=== PATIENT | male | born 1995 | race Caucasian/White ===

== ENCOUNTER 2018-01-26 15:14 | Emergency (ER) | payer OTHER ==
[2018-01-26] MEDS: diphenhydrAMINE INJ 50MG/ML VIAL (J1200) IV (18:59)
[2018-01-26] MEDS: NS 1,000 ML IV (19:00)
[2018-01-26] MEDS: METOCLOPRAMIDE INJ 10MG/2ML VIAL (J2765) IV (19:00)
[2018-01-26] MEDS: KETOROLAC 30 MG/ML VIAL (J1885) IV (19:00)
[2018-01-26 19:25] LABS: BASO % 0.5 % (0.0-1.0); EOS # 0.3 10^3/uL (0.0-0.50); EOS % 3.8 % (0.0-3.0); HEMOGLOBIN 15.2 g/dl (13.5-17.5); IMMATURE GRANULOCYTE % 0.5 % (0-3.0); LYMPH # 3.4 10^3/uL (1.5-6.5); MEAN CORPUSCULAR HEMOGLOBIN 28.4 pg (27.0-33.0); MONO # 0.9 10^3/uL (0.0-0.8); MONO % 10.3 % (0.0-5.0); NEUTROPHILS % 45.9 % (36.0-66.0); PLATELET COUNT, AUTOMATED 238 10^3/uL (150-450); RED BLOOD COUNT 5.35 10^6/uL (4.30-6.10); RED CELL DISTRIBUTION WIDTH 14.6 % (11.5-14.5); WHITE BLOOD COUNT 8.6 10^3/uL (4.0-10.0)
[2018-01-26 19:43] LABS: MAGNESIUM LEVEL 2.2 MG/DL (1.8-2.4)
[2018-01-26 19:46] LABS: ANION GAP 5 MEQ/L (8-16); BLOOD UREA NITROGEN 29 MG/DL (7-18); CALCIUM LEVEL 8.8 MG/DL (8.5-10.1); CARBON DIOXIDE LEVEL 29 MEQ/L (21-32); CHLORIDE LEVEL 107 MEQ/L (98-107); CREATININE FOR GFR 1.04 MG/DL (0.70-1.30); GLUCOSE, FASTING 87 MG/DL (70-100); POTASSIUM SERUM 4.5 MEQ/L (3.5-5.1); SODIUM LEVEL 141 MEQ/L (136-145)
[2018-01-26 19:54] LABS: GOLD SPEC TUBE RECIEVED
[2018-01-26] MEDS: methylPREDNISolone INJ 125 MG/2 ML VIAL (J2930) IV (20:45)
== END 2018-01-26 22:03 | disposition home or self-care (01) ==
LOC: M ED 15:14
DX: G43.909 Migraine, unspecified, not intractable, without status migrainosus (principal)
CPT/HCPCS: J1200

== ENCOUNTER 2018-03-14 00:11 | Emergency (ER) | payer OTHER ==
[2018-03-14 00:52] LABS: HEMATOCRIT 44.1 % (42.0-52.0); HEMOGLOBIN 14.8 g/dl (13.5-17.5); MEAN CORPUSCULAR HEMOGLOBIN 28.6 pg (27.0-33.0); MEAN CORPUSCULAR HGB CONC 33.6 g/dl (32.0-36.5); MEAN CORPUSCULAR VOLUME 85.1 fl (80.0-96.0); PLATELET COUNT, AUTOMATED 214 10^3/uL (150-450); RED BLOOD COUNT 5.18 10^6/uL (4.30-6.10); RED CELL DISTRIBUTION WIDTH 13.7 % (11.5-14.5); WHITE BLOOD COUNT 10.6 10^3/uL (4.0-10.0)
[2018-03-14 01:35] LABS: AMPHETAMINES LEVEL URINE NEGATIVE (NEGATIVE); BARBITURATES URINE NEGATIVE (NEGATIVE); BENZODIAZEPINES URINE NEGATIVE (NEGATIVE); CANNABINOIDS URINE NEGATIVE (NEGATIVE); COCAINE METABOLITE URINE NEGATIVE (NEGATIVE); METHADONE URINE NEGATIVE (NEGATIVE); OPIATES URINE NEGATIVE (NEGATIVE); PHENCYCLIDINE URINE NEGATIVE (NEGATIVE)
[2018-03-14 01:36] LABS: ACETAMINOPHEN LEVEL < 2.0 UG/ML (10.0-30.0); ALBUMIN 3.8 GM/DL (3.2-5.2); ALBUMIN/GLOBULIN RATIO 1.23 (1.00-1.93); ALKALINE PHOSPHATASE 51 U/L (45-117); ALT/SGPT 28 U/L (12-78); ANION GAP 12 MEQ/L (8-16); AST/SGOT 23 U/L (7-37); BILIRUBIN,DIRECT < 0.1 MG/DL (0.0-0.2); BILIRUBIN,TOTAL 0.2 MG/DL (0.2-1.0); BLOOD UREA NITROGEN 17 MG/DL (7-18); CALCIUM LEVEL 8.1 MG/DL (8.5-10.1); CARBON DIOXIDE LEVEL 25 MEQ/L (21-32); CHLORIDE LEVEL 107 MEQ/L (98-107); CREATININE FOR GFR 1.17 MG/DL (0.70-1.30); ETHYL ALCOHOL (ETHANOL) 0.153 % (0.000-0.010); GLOMERULAR FILTRATION RATE > 60.0 (>60); GLUCOSE, FASTING 92 MG/DL (70-100); POTASSIUM SERUM 3.9 MEQ/L (3.5-5.1); SALICYLATE LEVEL < 1.7 MG/DL (5.0-30.0); SODIUM LEVEL 144 MEQ/L (136-145); TOTAL PROTEIN 6.9 GM/DL (6.4-8.2)
== END 2018-03-14 03:05 | disposition home or self-care (01) ==
LOC: M ED 00:11
DX: S00.83XA Contusion of other part of head, initial encounter (principal); F10.129 Alcohol abuse with intoxication, unspecified; X58.XXXA Exposure to other specified factors, initial encounter; Y92.9 Unspecified place or not applicable; Y93.89 Activity, other specified; Y99.9 Unspecified external cause status; J01.90 Acute sinusitis, unspecified
CPT/HCPCS: 70486

== ENCOUNTER 2018-08-25 10:59 | Emergency (ER) | payer OTHER ==
[~2018-08-25] VITALS: Ht 175.3 cm; Wt 116.0 kg
[~2018-08-25 10:59] MED LIST: ALEV220T26 PO; NAPR-837 PO; REGL10TA6 PO
[2018-08-25 11:00] VITALS: BP 126/71
[2018-08-25] MEDS ORDERED: AUGM875T28 PO (13:18)
== END 2018-08-25 13:42 | disposition home or self-care (01) ==
LOC: M ED 10:59
DX: S61.451A Open bite of right hand, initial encounter (principal); W55.01XA Bitten by cat, initial encounter; Y92.009 Unspecified place in unspecified non-institutional (private) residence as the place of occurrence of the external cause; Y93.K9 Activity, other involving animal care

== ENCOUNTER 2019-05-13 19:50 | Inpatient (IN) | payer OTHER ==
[~2019-05-13] VITALS: Ht 177.8 cm; Wt 105.4 kg
[~2019-05-13 19:50] MED LIST changes: +AUGM875T28 PO
[2019-05-13] MEDS ORDERED: CLONI1TA PO (20:05)
[2019-05-13] MEDS ORDERED: LEXA1TAB PO (20:05)
[2019-05-13 20:43] LABS: HEMATOCRIT 44.5 % (42.0-52.0); HEMOGLOBIN 14.2 g/dl (13.5-17.5); MEAN CORPUSCULAR HEMOGLOBIN 26.5 pg (27.0-33.0); MEAN CORPUSCULAR HGB CONC 31.9 g/dl (32.0-36.5); PLATELET COUNT, AUTOMATED 356 10^3/uL (150-450); RED BLOOD COUNT 5.36 10^6/uL (4.30-6.10); WHITE BLOOD COUNT 10.2 10^3/uL (4.0-10.0)
[2019-05-13 21:06] LABS: AMPHETAMINES LEVEL URINE NEGATIVE (NEGATIVE); BARBITURATES URINE NEGATIVE (NEGATIVE); BENZODIAZEPINES URINE NEGATIVE (NEGATIVE); CANNABINOIDS URINE NEGATIVE (NEGATIVE); COCAINE METABOLITE URINE NEGATIVE (NEGATIVE); METHADONE URINE NEGATIVE (NEGATIVE); OPIATES URINE NEGATIVE (NEGATIVE); PHENCYCLIDINE URINE NEGATIVE (NEGATIVE)
[2019-05-13 21:16] LABS: ACETAMINOPHEN LEVEL < 2.0 UG/ML (10.0-30.0); ALBUMIN 3.7 GM/DL (3.2-5.2); ALT/SGPT 175 U/L (12-78); BILIRUBIN,DIRECT 0.1 MG/DL (0.0-0.2); BILIRUBIN,TOTAL 0.4 MG/DL (0.2-1.0); BLOOD UREA NITROGEN 19 MG/DL (7-18); CALCIUM LEVEL 8.4 MG/DL (8.5-10.1); CARBON DIOXIDE LEVEL 32 MEQ/L (21-32); CHLORIDE LEVEL 107 MEQ/L (98-107); CREATININE FOR GFR 1.41 MG/DL (0.70-1.30); ETHYL ALCOHOL (ETHANOL) < 0.003 % (0.000-0.010); GLOMERULAR FILTRATION RATE > 60.0 (>60); GLUCOSE, FASTING 87 MG/DL (70-100); POTASSIUM SERUM 4.3 MEQ/L (3.5-5.1); SALICYLATE LEVEL < 1.7 MG/DL (5.0-30.0); SODIUM LEVEL 142 MEQ/L (136-145); TOTAL PROTEIN 7.2 GM/DL (6.4-8.2)
--- NOTE | 2019-05-14 05:59 | ECGEPIP ---
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
[2019-05-14] MEDS ORDERED: MOM 30ML SUSPENSION UDC PO PRN (13:30)
[2019-05-14] MEDS ORDERED: ACETAMINOPHEN TAB 650MG DOSE (2X325MG) PO PRN (13:30)
[2019-05-14] MEDS ORDERED: MAALOX 30 ML SUSP *UDC PO PRN (13:30)
[2019-05-14] MEDS: NICOTINE 21MG/24HR 1 EA TRANSDERMAL TD SCH (13:58)
[2019-05-14 15:55] VITALS: BP 160/90
[2019-05-14] MEDS: cloNIDine 0.1 MG TAB PO SCH (20:26)
[2019-05-14] MEDS: hydrOXYzine 50 MG TAB PO PRN (20:26)
[2019-05-14] MEDS ORDERED: ESCITALOPRAM OXALATE 10 MG TAB (LEXAPRO) PO SCH (21:00)
[2019-05-14] MEDS: traZODone 50 MG TAB PO PRN (22:11)
[2019-05-15 06:20] VITALS: BP 132/59
[2019-05-15] MEDS: NICOTINE 21MG/24HR 1 EA TRANSDERMAL TD SCH (08:48)
--- NOTE | 2019-05-15 11:55 | MHHPEPDOC ---
General Date Of Admission: May 14, 2019 Legal Status: 9.39 Chief Complaint "I told a friend I wasn't going to be here much longer." History of Present Illness HISTORY OF THE PRESENT ILLNESS: Patient is a 24 -year-old , AD, male, with a history of depression and no inpatient admission who was brought to the ED after he told a friend that he may not be around much longer and his friend told his Michael who took pt to [facility] to be seen and then pt was brought to ED even though pt told his Michael that his therapist said he was ok to return to work. Pt states in the ED that he old his friend he had been suicidal in the past and was afraid he'd become suicidal again. He denies SI/HI in the ED though to [facility] staff but endorsed SI to Dr. Wilhelm. Pt endorsed 3 prior suicide attempts in the past, one prior to joining the [employer], one 1yr ago, and 1 2 months ago but never told anyone about them. States in Ed that when he was on leave in 03/25 he attempted to hang him self for shower head while he was in the shower but came in so he stopped. States in the ED that his main stressor was him cheating on his and telling her about it 05/09/19, endorsing guilt feels abo ut it. 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 Pt's Michael reported to the ED that pt had be zhou often and they believed he had a drinking problem. Later after pt admitted to unit called by staff who advised me that pt's Michael had search his home and found anabolic steroids which is a likely cause of anger/agitation, depression, SI, anxiety, sex addiction (roid rage) Psychiatric Review of Systems Depression (2 or more weeks): depressed mood, feelings of excess/guilt (guilt), difficulty concentrating, suicidal thoughts Martina (4 or more days of): denies Psychosis: denies PTSD: denies Anxiety: situational anxiety, stressor related anxiety Anxiety/ 6 months or more of: restlessness, keyed up, difficulty concentrating, irritability, sleep disturbance Past Psychiatric History Previous Psychiatric Diagnosis: depression, sex addition Previous Psychiatric Admissions: denies Suicide Attempts: 3 last 2 months ago by attempting to hanging himself from shower head in shower but then his walk in so he stopped; never told any one Psychiatric Follow-up: [facility] Psychiatric medications: lexapro 10mg qhs, clonidine 0.1 mg qhs Past Medical History Medical Problems varicose veins Head Injury: No Seizures: No Hospitalizations: No Surgeries: No Family Medical/Psychiatric HX Medical Problems denies Addiction: No Suicide Attemps/Completions: No Addiction History nicotine, alcohol (6 pack beer 2x/month), other (anabolic steriods - states last used 1 month ago, sexual addiction) Social History Childhood: 2 parent home with siblings, good childhood Abuse/Trauma:denies Current Living Situation: lives with on FD Education: high school grad Employment: [employer], currently being med boarded for varicose veins Social Support: Legal: denies Marital: , no kids Mental Status Examination General Appearance: well groomed, appears stated age, hospital scubs/clothing, other (facial acne) Build: overweight (muscular) Demeanor: average Eye Contact: average Activity: average Behavior: cooperative Speech: clear, spontaneous, reg/rate,rhythm,volume Mood: depressed, anxious Mood "better" Affect: constricted, congruent, anxious Thought Process: logical/linear, depressed, intact Thought Content (Delusions): none reported, denies SI, HI, AVH Thought Content (Other): guilty (regarding cheating on ), appropriate Thought Content (Aggressive): none reported Perception (Hallucinations): none reported Perception (Other): none reported Cognition (Impairment of): none reported Cognition(Intelligence Est.): average Oriented: Awake, Alert, Oriented times three Insight: fair Judgment: Fair Psychosis: Denies Diagnoses Depression Unspecified R/O adjustment d/o with depression and anxiety Anabolic Steroid use d/o Sexual Addiction A-FIB/CHADSVASC A-FIB History Current/History of A-Fib/PAF?: No Assessment Pt seen and states he's here for suicidal thoughts. States his has suicidal thoughts about weekly for the past 2 yrs and has almost acted on them in the past but didn't due to thoughts about family members and hope that things will get better. States that his suicidal thoughts this times made him actually want to get help. States he feels better today and denies SI now that he's getting help. Admits to stressors in the such as being med boarded for varicose veins and regarding his as he's cheated on her a lot in the past which "takes a tole on me." Michael called yesterday to notified unit yesterday that in searching pt's home found anabolic steroids that he has used in about a month and just had extras in him home. States he was using them to maintain muscle mass but stopped once he looked into their side effects like depression and anxiety which motivated him to stop. Believes his depression is due to his current stressors. States he takes lexapro qhs but believes it needs to be increased as it's not working as well as previously. Denies SI/HI, hallucinations, delusions. Feels safe here. Initial Treatment Plan 1. Patient was admitted on a 9.39 status. 2. Complete history was obtained. 3. With patients permission, family will be contacted and database will be expanded. 4. Patients medication regimen will be reviewed and changed accordingly. 5. Patient will be provided with protected environment. 6. Patient will be treated with individual, group, and milieu therapies. 7. Patient will receive supportive psych-education. 8. Discharge planning will commence immediately. 9. Outpatient follow-up treatment will be strongly recommended. 10. The initial treatment plan will focus initially on: * Depression. * Risk for suicide. 11. increase lexapo to 20mg qhs, vistaril 50mg q4hr prn anxiety ESTIMATED LENGTH OF STAY: 5-7 DAYS. TIME SPENT COUNSELING AND COORDINATING INITIAL CARE: 60 minutes. Vital Signs Vital Signs Date Time Temp Pulse Resp B/P (MAP) Pulse Ox O2 Delivery O2 Flow Rate FiO2 05/15/19 06:20 99.0 67 18 132/59 (83) 05/14/19 15:55 Room Air 05/14/19 12:30 96 Medications Scheduled Clonidine Hcl (Clonidine HCl) 0.1 Mg Tablet, 0.1 MG PO QHS, (Reported) Escitalopram Oxalate (Lexapro) 10 Mg Tablet, 10 MG PO QHS, (Reported) Allergies Coded Allergies: No Known Allergies (Unverified , 05/13/19) CAROL VILLA DO May 15, 2019 11:55
--- NOTE | 2019-05-15 12:22 | HPEPDOC ---
[facility] Medical History & Physical Date of Admission May 15, 2019 Date of Service: May 15, 2019 History and Physical CHIEF COMPLAINT: Admitted to inpatient mental health unit for suicidal ideation HISTORY OF PRESENT ILLNESS: 24-year-old male with past medical history of hypertension and depression is admitted to inpatient mental health unit for suicidal ideation. Patient has had worsening depression for the past 2 years, has attempted suicide in the past, currently had plans, but did not act on them. Patient does not have any medical complaints at this time, takes clonidine for hypertension. He denies any shortness of breath, chest pain, nausea, vomiting or diarrhea. 10 point review of system is negative except for above PAST MEDICAL HISTORY: 1. Hypertension. 2. Depression. PAST SURGICAL HISTORY: 1. Breast reduction. SOCIAL HISTORY: Never smoker. Social alcohol use. Denies drug use FAMILY HISTORY: Mother had thyroid cancer ALLERGIES: Please see below. HOME MEDICATIONS: Please see below. PHYSICAL EXAMINATION: VITAL SIGNS: Please see below. GENERAL: No distress HEENT: Normocephalic, atraumatic, moist mucous membranes NECK: Supple CARDIOVASCULAR EXAMINATION: S1, S2, no murmurs RESPIRATORY EXAMINATION: Clear to auscultation, no wheezing ABDOMINAL EXAMINATION: Soft, nontender, nondistended, positive bowel sounds EXTREMITIES: Range of motion intact SKIN: No rash NEUROLOGICAL EXAMINATION: Alert and oriented 3, no focal deficits PSYCHIATRIC EXAMINATION: Calm and cooperative LABORATORY DATA: See below. MICROBIOLOGY: Please see below. ASSESSMENT: 24-year-old male with past medical history of hypertension and depression, admitted to inpatient mental health unit for suicidal ideation. . PLAN: 1. Suicidal ideation. Management as per primary team 2. Hypertension. Continue clonidine 3. Elevated creatinine. Patient has significant muscle mass, likely to be his baseline, can monitor if concerned. Patient has no active medical issues at this time, please reconsult if needed. Vital Signs Vital Signs Date Time Temp Pulse Resp B/P (MAP) Pulse Ox O2 Delivery O2 Flow Rate FiO2 05/15/19 06:20 99.0 67 18 132/59 (83) 05/14/19 15:55 Room Air 05/14/19 12:30 96 Home Medications Scheduled Clonidine Hcl (Clonidine HCl) 0.1 Mg Tablet, 0.1 MG PO QHS Escitalopram Oxalate (Lexapro) 10 Mg Tablet, 10 MG PO QHS Allergies Coded Allergies: No Known Allergies (Unverified , 05/13/19) A-FIB/CHADSVASC A-FIB History Current/History of A-Fib/PAF?: No PARISH GOODRICH MD May 15, 2019 12:22
[2019-05-15 16:19] VITALS: BP 140/72
[2019-05-15] MEDS: cloNIDine 0.1 MG TAB PO SCH (20:31)
[2019-05-15] MEDS: traZODone 50 MG TAB PO PRN (20:31)
[2019-05-15] MEDS: ESCITALOPRAM OXALATE 10 MG TAB (LEXAPRO) PO SCH (20:31)
[2019-05-15] MEDS: hydrOXYzine 50 MG TAB PO PRN (21:25)
[2019-05-16 06:34] VITALS: BP 111/53
--- NOTE | 2019-05-16 09:36 | MHIPNPDOC ---
[facility] Progress Note Progress Note DATE OF SERVICE: 05/16/19 HISTORY: Patient is a 24 -year-old , AD, male, with a history of depression and no inpatient admission who was brought to the ED after he told a friend that he may not be around much longer and his friend told his Michael who took pt to [facility] to be seen and then pt was brought to ED even though pt told his Michael that his therapist said he was ok to return to work. Pt states in the ED that he old his friend he had been suicidal in the past and was afraid he'd become suicidal again. He denies SI/HI in the ED though to [facility] staff but end orsed SI to Dr. Wilhelm. Pt endorsed 3 prior suicide attempts in the past, one prior to joining the [employer], one 1yr ago, and 1 2 months ago but never told anyone about them. States in Ed that when he was on leave in 03/25 he attempted to hang him self for shower head while he was in the shower but came in so he stopped. States in the ED that his main stressor was him cheating on his and telling her about it 05/09/19, endorsing guilt feels about it. 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 Pt's Michael reported to the ED that pt had be zhou often and they believed he had a drinking problem. Later after pt admitted to unit called by staff who advised me that pt's Michael had search his home and found anabolic steroids which is a likely cause of anger/agitation, depression, SI, anxiety, sex addiction (roid rage) Pt seen and states he's here for suicidal thoughts. States his has suicidal thoughts about weekly for the past 2 yrs and has almost acted on them in the past but didn't due to thoughts about family members and hope that things will get better. States that his suicidal thoughts this times made him actually want to get help. States he feels better today and denies SI now that he's getting help. Admits to stressors in the such as being med boarded for varicose veins and regarding his as he's cheated on her a lot in the past which "takes a tole on me." Michael called yesterday to notified unit yesterday that in searching pt's home found anabolic steroids that he has used in about a month and just had extras in him home. States he was using them to maintain muscle mass but stopped once he looked into their side effects like depression and anxiety which motivated him to stop. Believes his depression is due to his current stressors. States he takes lexapro qhs but believes it needs to be increased as it's not working as well as previously. Denies SI/HI, hallucinations, delusions. Feels safe here. VITAL SIGNS: See below. NEW TEST RESULTS: See below. CURRENT MEDICATIONS: See below. MENTAL STATUS EXAMINATION: General Appearance: well groomed, appears stated age, hospital scubs/clothing, other (facial acne) Build: overweight (muscular) Demeanor: average Eye Contact: average Activity: average Behavior: cooperative Speech: clear, spontaneous, reg/rate,rhythm,volume Mood: depressed, anxious Mood "ok" Affect: constricted, congruent, anxious Thought Process: logical/linear, depressed, intact Thought Content (Delusions): none reported, denies SI, HI, AVH Thought Content (Other): guilty (regarding cheating on ), appropriate Thought Content (Aggressive): none reported Perception (Hallucinations): none reported Perception (Other): none reported Cognition (Impairment of): none reported Cognition(Intelligence Est.): average Oriented: Awake, Alert, Oriented times three Insight: fair Judgment: Fair Psychosis: Denies DIAGNOSES: Depression Unspecified R/O adjustment d/o with depression and anxiety Anabolic Steroid use d/o Sexual Addiction ASSESSMENT:Pt seen and states that his mood is "ok." States he slept well last night. Feels he is tolerating the increase in his lexapro well and is waiting for it to be more beneficial with daily use. His mood still appears depressed with constricted, anxious affect. Mostly worried about what his Michael will say or do after they found anabolic steriods in his home that pt said was "left over" and he stopped using a month ago. Continues to endorse guilt over cheating on his with multiple female sexual partners (5). He is attending groups and finding them helpful. He denies SI/HI, hallucinations, delusions. Pt feels safe here. MANAGEMENT PLAN: continue plan. lexapo to 20mg qhs vistaril 50mg q4hr prn anxiety TIME SPENT: 30 minutes. Vital Signs Vital Signs Date Time Temp Pulse Resp B/P (MAP) Pulse Ox O2 Delivery O2 Flow Rate FiO2 05/16/19 06:34 98.9 68 18 111/53 (72) Room Air 05/14/19 12:30 96 Current Medications Current Medications Medications (Trade) Dose Ordered Sig/Rehana Route PRN Reason Start Time Stop Time Status Last Admin Dose Admin Acetaminophen (Tylenol Tab) 650 mg Q6HP PRN PO HEADACHE or DISCOMFORT 05/14/19 13:30 Al Hydrox/Mg Hydrox/Simethicone (Mylanta) 30 ml Q4HP PRN PO HEARTBURN/INDIGESTION 05/14/19 13:30 Clonidine HCl (Catapres) 0.1 mg QHS PO 05/14/19 21:00 05/15/19 20:31 Escitalopram Oxalate (Lexapro) 10 mg QHS PO 05/14/19 21:00 05/15/19 11:56 DC 05/14/19 20:26 Escitalopram Oxalate (Lexapro) 20 mg QHS PO 05/15/19 21:00 05/15/19 20:31 Home Med (Med Rec Complete!) ASDIRECTED XX 05/13/19 22:30 05/13/19 22:32 DC Hydroxyzine HCl (Atarax) 50 mg Q4HP PRN PO Anxiety, Agitation 05/14/19 19:45 05/15/19 21:25 Magnesium Hydroxide (Milk Of Magnesia) 30 ml DAILYPRN PRN PO CONSTIPATION 05/14/19 13:30 Nicotine (Nicoderm Cq 21mg) 1 patch DAILY TD 05/14/19 09:00 05/15/19 17:39 DC Trazodone HCl (Desyrel) 50 mg QHSP PRN PO INSOMNIA 05/14/19 13:30 05/15/19 20:31 Allergies Coded Allergies: No Known Allergies (Unverified , 05/13/19) CAROL VILLA DO May 16, 2019 9:36 am
[2019-05-16 16:07] VITALS: BP 133/60
[2019-05-16] MEDS: cloNIDine 0.1 MG TAB PO SCH (20:23)
[2019-05-16] MEDS: ESCITALOPRAM OXALATE 10 MG TAB (LEXAPRO) PO SCH (20:23)
[2019-05-16] MEDS: traZODone 50 MG TAB PO PRN (21:52)
[2019-05-17 06:50] VITALS: BP 109/49
--- NOTE | 2019-05-17 10:23 | MHIPNPDOC ---
[facility] Progress Note Progress Note DATE OF SERVICE: 05/17/19 HISTORY: Patient is a 24 -year-old , AD, male, with a history of depression and no inpatient admission who was brought to the ED after he told a friend that he may not be around much longer and his friend told his Michael who took pt to [facility] to be seen and then pt was brought to ED even though pt told his Michael that his therapist said he was ok to return to work. Pt states in the ED that he old his friend he had been suicidal in the past and was afraid he'd become suicidal again. He denies SI/HI in the ED though to [facility] staff but en dorsed SI to Dr. Wilhelm. Pt endorsed 3 prior suicide attempts in the past, one prior to joining the [employer], one 1yr ago, and 1 2 months ago but never told anyone about them. States in Ed that when he was on leave in 03/25 he attempted to hang him self for shower head while he was in the shower but came in so he stopped. States in the ED that his main stressor was him cheating on his and telling her about it 05/09/19, endorsing guilt feels about it. 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 Pt's Michael reported to the ED that pt had be zhou often and they believed he had a drinking problem. Later after pt admitted to unit called by staff who advised me that pt's Michael had search his home and found anabolic steroids which is a likely cause of anger/agitation, depression, SI, anxiety, sex addiction (roid rage) Pt seen and states he's here for suicidal thoughts. States his has suicidal thoughts about weekly for the past 2 yrs and has almost acted on them in the past but didn't due to thoughts about family members and hope that things will get better. States that his suicidal thoughts this times made him actually want to get help. States he feels better today and denies SI now that he's getting help. Admits to stressors in the such as being med boarded for varicose veins and regarding his as he's cheated on her a lot in the past which "takes a tole on me." Michael called yesterday to notified unit yesterday that in searching pt's home found anabolic steroids that he has used in about a month and just had extras in him home. States he was using them to maintain muscle mass but stopped once he looked into their side effects like depression and anxiety which motivated him to stop. Believes his depression is due to his current stressors. States he takes lexapro qhs but believes it needs to be increased as it's not working as well as previously. Denies SI/HI, hallucinations, delusions. Feels safe here. VITAL SIGNS: See below. NEW TEST RESULTS: See below. CURRENT MEDICATIONS: See below. MENTAL STATUS EXAMINATION: General Appearance: well groomed, appears stated age, hospital scubs/clothing, other (facial acne) Build: overweight (muscular) Demeanor: average Eye Contact: average Activity: average Behavior: cooperative Speech: clear, spontaneous, reg/rate,rhythm,volume Mood: depressed, anxious Mood "ok" Affect: constricted, congruent, anxious Thought Process: logical/linear, depressed, intact Thought Content (Delusions): none reported, denies SI, HI, AVH Thought Content (Other): guilty (regarding cheating on ), appropriate Thought Content (Aggressive): none reported Perception (Hallucinations): none reported Perception (Other): none reported Cognition (Impairment of): none reported Cognition(Intelligence Est.): average Oriented: Awake, Alert, Oriented times three Insight: fair Judgment: Fair Psychosis: Denies DIAGNOSES: Depression Unspecified R/O adjustment d/o with depression and anxiety Anabolic Steroid use d/o Sexual Addiction ASSESSMENT:Pt seen and states that his mood is "better." States he slept well last night. Feels he is tolerating the increase in his lexapro well and believes it is now beneficial to his mood with daily use and group attendance combined. His mood still appears improved and less constricted and anxious affect. Continues to be mostly worried about what his Michael will say or do after they found anabolic steriods in his home that pt said was "left over" and he stopped using a month ago. Continues to endorse guilt over cheating on his with multiple female sexual partners (5) but is less preoccupied and depressed by it but is motivated to work on rebuilding his relation and trust with his . States she's forgiven him. States vistaril is sedating if he takes it for anxiety and advised will his dose so it's less sedating. States he doesn't think he'll need it though as his anxiety is improved with his treatment. He is attending groups and finding them helpful. He denies SI/HI, hallucinations, delusions. Pt feels safe here. MANAGEMENT PLAN: continue plan. D/c planning tomorrow lexapo to 20mg qhs vistaril 25mg q4hr prn anxiety TIME SPENT: 30 minutes. Vital Signs Vital Signs Date Time Temp Pulse Resp B/P (MAP) Pulse Ox O2 Delivery O2 Flow Rate FiO2 05/17/19 06:50 98.6 55 12 109/49 (69) Room Air 05/14/19 12:30 96 Current Medications Current Medications Medications (Trade) Dose Ordered Sig/Rehana Route PRN Reason Start Time Stop Time Status Last Admin Dose Admin Acetaminophen (Tylenol Tab) 650 mg Q6HP PRN PO HEADACHE or DISCOMFORT 05/14/19 13:30 Al Hydrox/Mg Hydrox/Simethicone (Mylanta) 30 ml Q4HP PRN PO HEARTBURN/INDIGESTION 05/14/19 13:30 Clonidine HCl (Catapres) 0.1 mg QHS PO 05/14/19 21:00 05/16/19 20:23 Escitalopram Oxalate (Lexapro) 10 mg QHS PO 05/14/19 21:00 05/15/19 11:56 DC 05/14/19 20:26 Escitalopram Oxalate (Lexapro) 20 mg QHS PO 05/15/19 21:00 05/16/19 20:23 Home Med (Med Rec Complete!) ASDIRECTED XX 05/13/19 22:30 05/13/19 22:32 DC Hydroxyzine HCl (Atarax) 50 mg Q4HP PRN PO Anxiety, Agitation 05/14/19 19:45 05/15/19 21:25 Magnesium Hydroxide (Milk Of Magnesia) 30 ml DAILYPRN PRN PO CONSTIPATION 05/14/19 13:30 Nicotine (Nicoderm Cq 21mg) 1 patch DAILY TD 05/14/19 09:00 05/15/19 17:39 DC Trazodone HCl (Desyrel) 50 mg QHSP PRN PO INSOMNIA 05/14/19 13:30 2/9/20 21:52 Allergies Coded Allergies: No Known Allergies (Unverified , 05/13/19) CAROL VILLA DO May 17, 2019 10:23 am
[2019-05-17] MEDS ORDERED: hydrOXYzine 25 MG TAB PO PRN (10:30)
[2019-05-17 16:21] VITALS: BP 139/63
[2019-05-17] MEDS: ESCITALOPRAM OXALATE 10 MG TAB (LEXAPRO) PO SCH (21:08)
[2019-05-17 21:09] VITALS: BP 149/88
[2019-05-17] MEDS: cloNIDine 0.1 MG TAB PO SCH (21:09)
[2019-05-18 06:30] VITALS: BP 116/59
[2019-05-18] MEDS ORDERED: TRAZ-252 PO (08:55)
[2019-05-18] MEDS ORDERED: ESCI10TA2 PO (08:55)
[2019-05-18] MEDS ORDERED: CLONI1TA PO (08:55)
[2019-05-18] MEDS ORDERED: HYDR-3363 PO (08:55)
--- NOTE | 2019-05-18 08:57 | MHDSPDOC ---
[facility] Discharge Summary Discharge Summary DATE OF ADMISSION: May 14, 2019 at 1:24 pm DATE OF DISCHARGE: May 18, 2019 DISCHARGE DIAGNOSES: Depression Unspecified R/O adjustment d/o with depression and anxiety Anabolic Steroid use d/o Sexual Addiction REASON FOR ADMISSION: Patient is a 24 -year-old , AD, male, with a history of depression and no inpatient admission who was brought to the ED after he told a friend that he may not be around much longer and his friend told his Michael who took pt to to be seen and then pt was brought to ED even though pt told his Michael that his therapist said he was ok to return to work. Pt states in the ED that he old his friend he had been suicidal in the past and was afraid he'd become suicidal again. He denies SI/HI in the ED though to [facility] staff but endorsed SI to Dr. Wilhelm. Pt endorsed 3 prior suicide attempts in the past, one prior to joining the [employer], one 1yr ago, and 1 2 months ago but never told anyone about them. States in Ed that when he was on leave in 03/25 he attempted to hang him self for shower head while he was in the shower but came in so he stopped. States in the ED that his main stressor was him cheating on his and telling her about it 05/09/19, endorsing guilt feels about it. 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 Pt's Michael reported to the ED that pt had be zhou often and they believed he had a drinking problem. Later after pt admitted to unit called by staff who advised me that pt's Michael had search his home and found anabolic steroids which is a likely cause of anger/agitation, depression, SI, anxiety, sex addiction (roid rage) Pt seen and states he's here for suicidal thoughts. States his has suicidal thoughts about weekly for the past 2 yrs and has almost acted on them in the past but didn't due to thoughts about family members and hope that things will get better. States that his suicidal thoughts this times made him actually want to get help. States he feels better today and denies SI now that he's getting help. Admits to stressors in the such as being med boarded for varicose veins and regarding his as he's cheated on her a lot in the past which "takes a tole on me." Michael called yesterday to notified unit yesterday that in searching pt's home found anabolic steroids that he has used in about a month and just had extras in him home. States he was using them to maintain muscle mass but stopped once he looked into their side effects like depression and anxiety which motivated him to stop. Believes his depression is due to his current stressors. States he takes lexapro qhs but believes it needs to be increased as it's not working as well as previously. Denies SI/HI, cesar llucinations, delusions. Feels safe here. CONSULTANTS INVOLVED: none TREATMENT AND PROGRESS ON THE UNIT : Pt was admitted to [facility], seen for psychiatric assessment and restarted on his outpatient medication lexapro increased to 20mg daily for mood and clonidine 0.1mg qhs for anxiety. He was provided vistaril 25mg tid prn anxiety and trazodone 100mg qhs prn insomnia. Pt found his medications beneficial and tolerated them well. He attended groups daily during his stay. His symptoms improved with treatment. On day of discharge he denied depression, anxiety, insomnia, SI/HI, hallucinations, delusions. He was discharged home after Michael meeting with follow-up at . He felt safe for discharge. DISCHARGE ASSESSMENT: Pt seen and states that his mood is "good" and that he's looking forward to going home to his with his Michael today. States he slept well last night. Feels he is tolerating the increase in his lexapro well and believes it's beneficial to his mood. States vistaril is beneficial for his anxiety. He is attending groups and finding them helpful. He denies depression, anxiety, insomnia, SI/HI, hallucinations, delusions. Pt feels safe to d/c home today with his Michael. MENTAL STATUS EXAMINATION ON DISCHARGE: General Appearance: well groomed, appears stated age, hospital scrubs/clothing, other (facial acne) Build: overweight (muscular) Demeanor: average Eye Contact: average Activity: average Behavior: cooperative Speech: clear, spontaneous, reg/rate,rhythm,volume Mood: euthymic, full range Mood "good" Affect: full, congruent Thought Process: logical/linear, intact Thought Content (Delusions): none reported, denies SI, HI, AVH Thought Content (Other): none reported, appropriate Thought Content (Aggressive): none reported Perception (Hallucinations): none reported Perception (Other): none reported Cognition (Impairment of): none reported Cognition(Intelligence Est.): average Oriented: Awake, Alert, Oriented times three Insight: good Judgment: good Psychosis: Denies MEDICATIONS ON DISCHARGE: lexapo to 20mg qhs vistaril 25mg tid prn anxiety clonidine 0.1mg qhs trazodone 50mg qhs prn insomnia PLAN/FOLLOWUP ARRANGEMENTS: D/c home with his Michael with follow-up at . The amount of time spent in the coordination of care for this patient was approximately 30 minutes. Vital Signs/I&Os Vital Signs Date Time Temp Pulse Resp B/P (MAP) Pulse Ox O2 Delivery O2 Flow Rate FiO2 05/18/19 06:30 97.6 52 14 116/59 (78) 05/17/19 16:21 Room Air 05/14/19 12:30 96 Medications Scheduled Clonidine Hcl (Clonidine HCl) 0.1 Mg Tablet, 0.1 MG PO QHS, (Reported) Escitalopram Oxalate (Lexapro) 10 Mg Tablet, 10 MG PO QHS, (Reported) Allergies Coded Allergies: No Known Allergies (Unverified , 05/13/19) CAROL VILLA DO May 18, 2019 8:56 am
== END 2019-05-18 11:43 | disposition home or self-care (01) | DRG 881 ==
LOC: M ED 19:50 → M ED INP 05-14 13:24 → M PSY 05-14 15:55
PROVIDERS: ADMIT Psychiatry & Neurology Psychiatry; ATTEND Psychiatry & Neurology Psychiatry
DX: F32.9 Major depressive disorder, single episode, unspecified (principal); Z91.5 Personal history of self-harm; F43.23 Adjustment disorder with mixed anxiety and depressed mood; F55.3 Abuse of steroids or hormones; F52.8 Other sexual dysfunction not due to a substance or known physiological condition; E03.9 Hypothyroidism, unspecified; I10 Essential (primary) hypertension; R79.0 Abnormal level of blood mineral; Z79.899 Other long term (current) drug therapy; F41.9 Anxiety disorder, unspecified

== ENCOUNTER → 2019-09-22 | Outpatient (CLI) | payer OTHER ==
[~2019-09-22] MED LIST changes: +CLONI1TA PO; +ESCI10TA2 PO; +HYDR-3363 PO; +LEXA1TAB PO; +LIDOCAINE 1% MDV 20ML VIAL As Ordered ONE; +TRAZ-252 PO
[2019-09-22 11:33] VITALS: BP 131/67
--- NOTE | 2019-09-22 17:20 | REP ---
ULTRASOUND-GUIDED LEFT AXILLARY LYMPH NODE BIOPSY The procedure was performed under the direct supervision of Dr. Costa. The patient has a history of a 1.2 x 0.9 x 0.7 cm lymph node in the left axilla seen on a previous ultrasound from [facility] performed on 08/18/2019. The risks and benefits of the procedure were explained to the patient and informed consent was obtained. The left axillary lymph node was localized using ultrasound guidance. The skin was prepped and draped in a sterile fashion. 1% lidocaine was used as a local anesthetic. Using ultrasound guidance a 14-gauge coaxial needle biopsy system was inserted and advanced into the lymph node. Six core biopsy samples were obtained and sent to lab. The patient did develop a hematoma postprocedure. Pressure was held at the site for approximately 5-10 minutes until hemostasis was achieved. The patient tolerated the procedure well. After the appropriate amount of monitored convalescence the patient was discharged from the department. Electronically Signed by JORDAN Huddleston 09/22/2019 04:19 P Electronically Signed by Abiodun Costa MD 09/22/2019 05:08 P
== END ==
LOC: M IRPRO 09:00
PROVIDERS: ATTEND General Practice
DX: R59.0 Localized enlarged lymph nodes (principal); L76.32 Postprocedural hematoma of skin and subcutaneous tissue following other procedure

== ENCOUNTER 2019-12-22 10:43 | Emergency (ER) | payer OTHER ==
[~2019-12-22] VITALS: Ht 177.8 cm; Wt 119.3 kg
[~2019-12-22 10:43] MED LIST changes: -LIDOCAINE 1% MDV 20ML VIAL As Ordered ONE
[2019-12-22] MEDS ORDERED: ABIL1TAB13 PO (10:49)
[2019-12-22 11:18] LABS: BASO % 0.6 % (0.0-1.0); EOS # 0.3 10^3/uL (0.0-0.5); HEMATOCRIT 40.2 % (42.0-52.0); HEMOGLOBIN 13.1 g/dl (13.5-17.5); LYMPH # 2.3 10^3/uL (1.5-5.0); LYMPH % 32.8 % (24.0-44.0); MEAN CORPUSCULAR HEMOGLOBIN 26.3 pg (27.0-33.0); MEAN CORPUSCULAR HGB CONC 32.6 g/dl (32.0-36.5); MEAN CORPUSCULAR VOLUME 80.7 fl (80.0-96.0); MONO # 0.6 10^3/uL (0.0-0.8); MONO % 8.1 % (0.0-5.0); NEUTROPHILS # 3.8 10^3/uL (1.5-8.5); NEUTROPHILS % 53.9 % (36.0-66.0); PLATELET COUNT, AUTOMATED 345 10^3/uL (150-450); RED BLOOD COUNT 4.98 10^6/uL (4.30-6.10); WHITE BLOOD COUNT 7.1 10^3/uL (4.0-10.0)
[2019-12-22 11:42] LABS: ALBUMIN 3.4 GM/DL (3.2-5.2); ALT/SGPT 107 U/L (12-78); BILIRUBIN,DIRECT 0.1 MG/DL (0.0-0.2); BILIRUBIN,TOTAL 0.3 MG/DL (0.2-1.0); BLOOD UREA NITROGEN 16 MG/DL (7-18); CALCIUM LEVEL 8.8 MG/DL (8.5-10.1); CARBON DIOXIDE LEVEL 29 MEQ/L (21-32); CHLORIDE LEVEL 107 MEQ/L (98-107); CREATININE FOR GFR 1.26 MG/DL (0.70-1.30); GLOMERULAR FILTRATION RATE > 60.0 (>60); GLUCOSE, FASTING 85 MG/DL (70-100); LIPASE 99 U/L (73-393); POTASSIUM SERUM 4.3 MEQ/L (3.5-5.1); SODIUM LEVEL 139 MEQ/L (136-145); TOTAL PROTEIN 7.4 GM/DL (6.4-8.2)
[2019-12-22] MEDS: GASTROGRAFIN SOLUTION 30ML PO SCH ×2 (12:25→12:57)
[2019-12-22] MEDS ORDERED: ISOVUE-370 76% 100ML VIAL As Ordered ONE (13:52)
--- NOTE | 2019-12-22 14:33 | REPVR ---
PROCEDURE INFORMATION: Exam: CT Abdomen And Pelvis With Contrast Exam date and time: 12/22/2019 2:00 PM Age: 24 years old Clinical indication: Abdominal pain; Generalized; Additional info: Hematemesis and black tarry stools TECHNIQUE: Imaging protocol: Computed tomography of the abdomen and pelvis with intravenous contrast. Radiation optimization: All CT scans at this facility use at least one of these dose optimization techniques: automated exposure control; mA and/or kV adjustment per patient size (includes targeted exams where dose is matched to clinical indication); or iterative reconstruction. Contrast material: ISOVUE 370; Contrast volume: 100 ml; Contrast route: INTRAVENOUS (IV); COMPARISON: No relevant prior studies available. FINDINGS: Mediastinal space: Small sliding hiatal hernia with thickening of the distal esophagus. Liver: Liver measures 19 cm in the midclavicular line. Gallbladder and bile ducts: Normal. No calcified stones. No ductal dilation. Pancreas: Normal. No ductal dilation. Spleen: Normal. No splenomegaly. Adrenals: Normal. No mass. Kidneys and ureters: Normal. No hydronephrosis. Stomach and bowel: Unremarkable. No obstruction. No mucosal thickening. Appendix: No evidence of appendicitis. Intraperitoneal space: Unremarkable. No free air. No significant fluid collection. Vasculature: Unremarkable. No abdominal aortic aneurysm. Lymph nodes: Unremarkable. No enlarged lymph nodes. Bladder: Unremarkable as visualized. Reproductive: Unremarkable as visualized. Bones/joints: Unremarkable. No acute fracture. Soft tissues: Unremarkable. IMPRESSION: Small sliding hiatal hernia with marked thickening noted of the distal esophagus suggesting esophagitis. Electronically signed by: Mari Nowak On 12/22/2019 14:32:58 PM
[2019-12-22] MEDS ORDERED: SUCR1SS PO (14:41)
[2019-12-22] MEDS ORDERED: PROT1TAB2 PO (14:41)
[2019-12-22 14:53] VITALS: BP 114/76
== END 2019-12-22 14:56 | disposition home or self-care (01) ==
LOC: M ED 10:43
DX: K62.5 Hemorrhage of anus and rectum (principal); K92.0 Hematemesis; K44.9 Diaphragmatic hernia without obstruction or gangrene; K20.9 Esophagitis, unspecified; R51 Headache; F33.9 Major depressive disorder, recurrent, unspecified; F41.9 Anxiety disorder, unspecified; F17.290 Nicotine dependence, other tobacco product, uncomplicated; Z79.899 Other long term (current) drug therapy
CPT/HCPCS: 36415; 74177; 80048; 80076; 83690; 85025; 86850; 86900; 86901; 99284; Q9963; Q9967

== ENCOUNTER 2020-01-27 16:48 | Emergency (ER) | payer OTHER ==
[~2020-01-27] VITALS: Ht 157.5 cm; Wt 119.1 kg
[~2020-01-27 16:48] MED LIST changes: +ABIL1TAB13 PO; +PROT1TAB2 PO; +SUCR1SS PO
[2020-01-27] MEDS ORDERED: HYDR-4570 (16:58)
[2020-01-27] MEDS ORDERED: DOXY100T (16:58)
[2020-01-27] MEDS ORDERED: GI COCKTAIL 50ML BTL(HYOSCYAMINE/MAALOX/LIDOCAINE VISCOUS)(1:3:1) PO ONE (17:45)
[2020-01-27 17:56] VITALS: BP 128/65
[2020-01-27] MEDS ORDERED: PROT1TAB2 PO (18:01)
[2020-01-27] MEDS ORDERED: SUCR1SS PO (18:01)
== END 2020-01-27 18:07 | disposition home or self-care (01) ==
LOC: M ED 16:48
DX: K21.00 Gastro-esophageal reflux disease with esophagitis, without bleeding (principal); Z87.891 Personal history of nicotine dependence; Z79.2 Long term (current) use of antibiotics; Z79.899 Other long term (current) drug therapy